=== PATIENT | female | born 1945 | race Native Hawaiian/Other Pacific Islander ===

== ENCOUNTER 2016-08-24 07:24 | Day surgery (SDC) | payer OTHER, MEDICARE ==
[2016-08-24 08:00] VITALS: BMI 30.2
--- NOTE | 2016-08-24 08:49 | CP.SDSHP ---
Same Day Surgery H & P - History Proposed Procedure: COLONSCOPY Pre-Op Diagnosis: SEE NOTES - Previous Medical/Surgical History Cardiac: Hypertension Endocrine/Metabolic: Diabetes, Other Misc: Other Pain: 4.Moderate Pain - Allergies Allergies: Allergies No Known Allergies Allergy (Verified 06/25/14 08:45) - Physical Exam General Appearance: N Vital Signs: Vital Signs 08/24/16 07:57 Temperature 97.8 F Pulse Rate 68 Respiratory 19 Rate Blood Pressure 154/69 H O2 Sat by Pulse 97 Oximetry Mental Status: Alert & Oriented x3 Neuro: WNL Heart: Other Lungs: WNL GI: Other - {Optional Preform as Required} Breast: WNL Abdomen: Other Rectal: Other Integument: WNL : WNL Ortho: WNL ENT: WNL - Impression Pt. Evaluated Today:Candidate for Anesthesia & Procedure: Yes - Date & Time Time: 08:52 Short Stay Discharge - Short Stay Discharge Admitting Diagnosis/Reason for Visit: POLYP OF COLON Disposition: HOME/ ROUTINE
[2016-08-24] MEDS ORDERED: Propofol 10 mg/ml Inj (20 ML) ONE (08:51)
[2016-08-24] MEDS ORDERED: Lactated Ringer's 500 ML IV ONE ×2 (08:52)
[2016-08-24 09:40] VITALS: TEMP 97.7
[2016-08-24] MEDS ORDERED: Belladonna-Phenobarbital PO ONE (09:45)
[2016-08-24] MEDS ORDERED: Pantoprazole 40 mg EC Tab PO ONE (09:45)
[2016-08-24 09:59] VITALS: O2SAT 100
[2016-08-24 11:12] VITALS: BP 149/73; PULSE 55; RESP 16
== END 2016-08-24 11:19 | disposition home or self-care (01) ==
LOC: C.ENDO 07:24
PROVIDERS: ATTEND Specialist
DX: K58.9 Irritable bowel syndrome, unspecified (principal); K52.9 Noninfective gastroenteritis and colitis, unspecified; K64.8 Other hemorrhoids; Z09 Encounter for follow-up examination after completed treatment for conditions other than malignant neoplasm; Z86.010 Personal history of colon polyps
CPT/HCPCS: 45380; 82948; 88305; J2001; J2704; J7120